=== PATIENT | male | born 1995 | race Caucasian/White ===

== ENCOUNTER → 2021-04-07 | Outpatient (CLI) | payer OTHER ==
--- NOTE | 2021-04-07 10:03 | KCIC ---
EXAMINATION: MRI RIGHT KNEE WITHOUT IV CONTRAST CLINICAL HISTORY: Right knee pain. Pain is medial and posterior. Right knee pain after a basketball i njury one week ago. TECHNIQUE: Multiplanar multisequential images obtained through the knee without intravenous contrast. COMPARISON: Right knee radiographs 04/03/2021 FINDINGS: MENISCI: Medial Meniscus: Bucket handle tear with large flap centrally displaced into the intercondylar notch Lateral Meniscus: Intact LIGAMENTS: ACL: Intact PCL: Intact MCL: Intact LCL Complex: Intact CARTILAGE: Medial Femoral Condyle: Normal Medial Tibial Plateau: Normal Lateral Femoral Condyle: Normal Lateral Tibial Plateau: Normal Patella: Normal Trochlea: Normal TENDONS: Distal quadriceps and patellar tendons intact. Popliteus tendon intact. BONES AND MARROW: No evidence of acute fracture or suspicious marrow replacing process. MUSCLES: Muscle bulk and signal intensity within normal limits. JOINT FLUID AND SYNOVIUM: Moderate joint effusion. No synovitis. No Russell's cyst. IMPRESSION: Medial meniscal bucket-handle tear. Electronically signed by: Mao Carcamo DO (04/07/2021 10:00 AM) GILLIAN
== END ==
LOC: KCIC MRI 08:36
PROVIDERS: ATTEND Orthopaedic Surgery Sports Medicine
DX: S83.211A Bucket-handle tear of medial meniscus, current injury, right knee, initial encounter (principal); S89.91XA Unspecified injury of right lower leg, initial encounter; M25.461 Effusion, right knee; X58.XXXA Exposure to other specified factors, initial encounter; Y93.89 Activity, other specified; Y92.89 Other specified places as the place of occurrence of the external cause; Y99.8 Other external cause status
CPT/HCPCS: 73721

== ENCOUNTER 2021-04-14 08:00 | Day surgery (SDC) | payer OTHER ==
[~2021-04-14] VITALS: Ht 180.3 cm; Wt 84.0 kg
[~2021-04-14 08:00] MED LIST: DEXAMETHASONE SOD PHOS 4 MG/ML VIAL ONE; KETOROLAC 30 MG/ML VIAL. ONE; LIDOCAINE 1% PF 5 ML VIAL. ONE; LIDOCAINE 2% PF 5 ML VIAL. ONE; MIDAZOLAM HCL/PF 2 MG/2 ML VIAL. ONE; ONDANSETRON PF 4 MG/2 ML VIAL. ONE; PROPOFOL 10 MG/ML (20ML) VIAL. IV ONE; fentaNYL PF VIAL 100 MCG/2 ML VIAL ONE
[2021-04-14] MEDS ORDERED: BUPIVACAINE MPF 0.5% 30 ML VIAL. ONE (08:15)
[2021-04-14] MEDS ORDERED: EPINEPHrine VIAL 30 MG/30 ML VIAL ONE (08:15)
[2021-04-14] MEDS ORDERED: LIDOCAINE 1% PF 30 ML VIAL. ONE (08:15)
[2021-04-14] MEDS ORDERED: KETOROLAC 30 MG/ML VIAL. ONE (08:21)
[2021-04-14 08:25] VITALS: BP 161/83
[2021-04-14] MEDS ORDERED: IV RINGERS,LACTATED 1000ML 1,000 ML IV SCH ×2 (08:45→10:30)
[2021-04-14] MEDS ORDERED: HYDR-2761 PO (08:46)
--- NOTE | 2021-04-14 08:47 | DISCH ---
DISCHARGE INSTRUCTIONS Condition on Discharge Condition on Discharge: Stable Activity After Discharge Activity Instructions for Disc: Other ROM activity Other activity instructions: remain in brace Bathing Instructions: Shower-keep dressing dry Weight Bearing Status after Di: Non weight bearing Diet after Discharge Diet after Discharge: Regular Wound Incision Care Wound/Incision Care: Ice to area for comfort, Keep wound/cast CDI, Change dressing Other wound/incision instructi: change in 2 days Contacting the DRNeri after DC Call your doctor for: Concerns you may have Follow-Up Follow up with: Ulises in 2 wks ARTI WEINBERG II, MD Apr 14, 2021 08:47
--- NOTE | 2021-04-14 08:54 | PDOC4 ---
Operative Note Operative Note Date of surgery: 04/14/2021 Surgeon: Babar Weinberg Cable Technician: Maverick Jolley Preoperative diagnosis: Displaced bucket-handle tear right medial meniscus Postoperative diagnosis: Same Procedure performed: Right knee medial meniscal repair Anesthesia: General Findings: 1. Cartilage at patellofemoral articulation unremarkable 2. Cartilage at medial compartment unremarkable 3. Cartilage intact without pathology at lateral compartment, lateral meniscus unremarkable 4 intact cruciate ligaments 5. No loose bodies 6. Displaced bucket-handle medial meniscus tear involving about 90% of his meniscus, he had a radial component to this at the junction of the mid and posterior body as well. Tourniquet time: 80 minutes Complications: None Blood loss 10 mL Reason for procedure: Patient is a very pleasant 25-year-old male who injured his knee, he had a twisting episode, please see my outpatient note for full details. His clinical and radiographic examination including MRI were consistent with the above preoperative diagnosis, given his age and the findings on MRI we elected to proceed with surgery. Description of procedure: Patient was greeted in the preoperative area by myself or the correct extremity was verified and marked. He was taken back to the operative suite and his antibiotics were started as he was brought back. Once in the operating room, he was transferred gently supine to the operating room table and secured to the bed with all pressure points padded. Range of motion at his knee was just shy of full extension to 130 degrees. His knee was stable to varus and valgus in extension mid flexion, negative Celia, negative pivot. We then proceeded to place a nonsterile tourniquet and taped in place to his right upper thigh. The right lower extremity was then prepped and draped in the usual sterile fashion we conducted a standard preoperative timeout. After this, the extremity was exsanguinated with an Esmarch and tourniquet insufflated to 250 mmHg. I then palpated marked surface anatomy and valarie lines for my planned skin incisions. I incised skin with a scalpel for my anterolateral portal and introduced the blunt arthroscopic trocar into the suprapatellar pouch followed by the camera. I then conducted my diagnostic arthroscopy with the above-noted findings and upon entering the medial compartment used a spinal needle to localize an anteromedial portal. I incised skin in accordance with this and introduced the probe. I immediately noted his bucket-handle tear and used the probe to carefully reduce it back into position. I then continued on with my diagnostic arthroscopy to inspect the remainder of his knee. I took down some of the ligamentum and fat pad anteriorly for visualization. I then used the meniscal rasp to debride the tear and try to stimulate some healing postoperatively. I then used the FasT-Fix suture devices at the posterior aspect, I placed 3 of these. I supplemented this with an outside in technique using 2 oh Heist tensile strength suture as well at the more medial and anteromedial portion. After passing these additional 2 sutures, I made small incisions between the suture limbs at his skin, and deliver the suture limbs out through the small incisions and tied them down by hand. I then placed the camera back into the joint, I was happy with the orientation of the meniscus and the repair stability. At the conclusion, this tear was stable to probing. I then placed the camera and shaver into the suprapatellar pouch and perform repeated vigorous palpation and aspiration maneuvers to make sure I removed all loose debris. After this removed all excess arthroscopic fluid and the arthroscopic instrumentation. Skin was then closed with 2-0 nylon. The leg was cleansed and dried and a sterile bulky dressing was applied followed by a hinged knee brace set at 0 to 90 degrees. He tolerated surgery well. No complications. Postoperative plan is to discharge him home, nonweightbearing. I will see him back in 2 weeks, sooner should a problem arise. BABAR WEINBERG II, MD Apr 14, 2021 08:54
[2021-04-14] MEDS ORDERED: LIDOCAINE 1% PF 30 ML VIAL. INJ ONE (09:10)
[2021-04-14] MEDS ORDERED: BUPIVACAINE MPF 0.5% 30 ML VIAL. IJ ONE (09:10)
[2021-04-14] MEDS ORDERED: EPINEPHrine VIAL 30 MG/30 ML VIAL IM ONE (09:10)
[2021-04-14] MEDS ORDERED: MORPHINE SULFATE 2 MG/ML INJ. IVP PRN (10:30)
[2021-04-14] MEDS ORDERED: HYDROmorphone 2 MG/ML INJ. IVP PRN (10:30)
[2021-04-14] MEDS ORDERED: fentaNYL PF VIAL 100 MCG/2 ML VIAL IVP PRN ×2 (10:30)
[2021-04-14] MEDS ORDERED: PROCHLORPERAZINE 10 MG/2 ML VIAL. IVP PRN (10:30)
[2021-04-14] MEDS ORDERED: HYDROcodone/APAP 5/325MG 1 TAB TABLET PO ONE (11:00)
[2021-04-14] MEDS ORDERED: fentaNYL PF VIAL 100 MCG/2 ML VIAL ONE (11:18)
[2021-04-14 12:39] VITALS: BP 158/76
== END 2021-04-14 12:56 | disposition home or self-care (01) ==
LOC: SURG 08:00
PROVIDERS: ATTEND Orthopaedic Surgery Sports Medicine
DX: S83.211A Bucket-handle tear of medial meniscus, current injury, right knee, initial encounter (principal); Z79.899 Other long term (current) drug therapy; Z98.890 Other specified postprocedural states; Z72.89 Other problems related to lifestyle; X58.XXXA Exposure to other specified factors, initial encounter; Y93.89 Activity, other specified; Y92.89 Other specified places as the place of occurrence of the external cause; Y99.8 Other external cause status
CPT/HCPCS: 29882; 97116; 97162; 97530; A4209; A4930; C1713; J0171; J0690; J1100; J1885; J2405; J2704; J3010; J3490; A4452; J2250